=== PATIENT | male | born 1965 | race Two or more races ===

== ENCOUNTER 2020-03-31 15:12 | Emergency (ER) | payer MEDICAID ==
[~2020-03-31] VITALS: Ht 177.8 cm; Wt 163.3 kg
[2020-03-31 16:57] LABS: ANION GAP 8 mmol/L (5-15); CALCIUM 9.2 mg/dL (8.5-10.1); CHLORIDE 99 mmol/L (98-107); CREATININE 1.58 mg/dL (0.7-1.3)
[2020-03-31 16:59] LABS: MEAN CORPUSCULAR HEMOGLOBIN 29.1 pg (27.5-34.5); MEAN CORPUSCULAR HGB CONC 35.4 g/dL (33.2-36.2); MEAN PLATELET VOLUME 10.2 fL (7.4-10.4); PLATELET COUNT 238 x10^3/uL (130-400); RED BLOOD COUNT 6.04 x10^6/uL (4.38-5.82); RED CELL DISTRIBUTION WIDTH 13.4 % (9.4-14.8)
[2020-03-31] MEDS ORDERED: POTASSIUM CHLORIDE 20 MEQ TAB.ER.PRT ONE (17:24)
[2020-03-31 17:58] LABS: MD YES
[2020-03-31] MEDS ORDERED: SODIUM CHLORIDE 0.9% 1,000ML IVBOLUS ONE (18:00)
[2020-03-31] MEDS ORDERED: POTASSIUM CHLORIDE 20 MEQ TAB.ER.PRT PO ONE (18:00)
[2020-03-31 18:07] LABS: <PLATELET ESTIMATE> ADEQUATE; <RBC MORPHOLOGY> NORMAL; BANDS%(MANUAL) 12 % (0-7); EOS#(MANUAL) 0.16 x10^3/uL (0.0-0.4); EOS% (MANUAL) 1 % (1-7); LYMPH#(MANUAL) 2.05 x10^3/uL (1-3.4); LYMPHS% (MANUAL) 13 % (22-44); METAMYELOCYTES# (MANUAL) 0.63 x10^3/uL (0-0); METAMYELOCYTES% (MANUAL) 4 % (0-1); MONOS#(MANUAL) 2.53 x10^3/uL (0.3-2.7); MONOS% (MANUAL) 16 % (2-9); SEG#(MANUAL) 8.53 x10^3/uL (1.8-6.8); SEGS% (MANUAL) 54 % (42-75)
[2020-03-31 18:08] LABS: LARGE PLATELETS 1+
[2020-03-31] MEDS ORDERED: SODIUM CHLORIDE FLUSH 10ML SYR IVF ONE (18:30)
--- NOTE | 2020-03-31 19:03 | NUR ---
REPORT RECEIVED FROM PAMELA MENESES. ASSUMED CARE OF PT
[2020-03-31 19:47] VITALS: BP 144/90
--- NOTE | 2020-03-31 19:47 | NUR ---
PT REQUESTING WATER. PER ERP, OK TO HAVE. ALL VITALS STABLE. FLUIDS STILL INFUSING. WILL CONTINUE TO MONITOR.
--- NOTE | 2020-03-31 19:48 | NUR ---
CHART UP FOR RECHECK
--- NOTE | 2020-03-31 22:00 | NUR ---
Patient/Caregiver given discharge instructions and they have confirmed that they understand the instructions. Patient ambulatory with steady gait.
== END 2020-03-31 22:01 | disposition home or self-care (01) ==
LOC: ED 20:16
DX: F10.10 Alcohol abuse, uncomplicated (principal); F15.10 Other stimulant abuse, uncomplicated; Y90.0 Blood alcohol level of less than 20 mg/100 ml
CPT/HCPCS: 36415; 80048; 82040; 85025; 96360; 99283; J7030